=== PATIENT | female | born 1950 | race Caucasian/White ===

== ENCOUNTER 2018-07-21 20:34 | Emergency (ER) | payer MEDICARE ==
[2018-07-21 20:40] VITALS: BP 138/60
--- NOTE | 2018-07-21 20:43 | UC ---
Eye Complaint HPI - HPI Summary HPI Summary: 68 yo female presents with RIGHT upper eyelid swelling for the last 3 days. She tells me that about 3 days ago she noticed some redness and mild swelling to her upper eyelid. She thought she had a stye, so she applied warm compresses and it improved a little, but today noticed the redness spread across her whole upper eyelid. She does wear contacts daily, but did not today due to this. Denies vision changes, eye drainage, eye trauma. - History of Current Complaint Chief Complaint: UCEye Stated Complaint: EYE COMPLAINT Time Seen by Provider: 07/21/18 20:42 Hx Obtained From: Patient Onset/Duration: Gradual Onset Severity Currently: None Pain Intensity: 0 - Allergies/Home Medications Allergies/Adverse Reactions: Allergies Allergy/AdvReac Type Severity Reaction Status Date / Time No Known Allergies Allergy Verified 07/21/18 20:40 Home Medications: Home Medications Ibuprofen TAB* [Advil TAB*] 400 mg PO ONCE PRN 07/21/18 [History Confirmed 07/21] Med For Bones* MONTHLY 07/21/18 [History] PMH/Surg Hx/FS Hx/Imm Hx - Additional Past Medical History Additional PMH: None - Surgical History Surgical History: None - Family History Known Family History: Positive: None - Social History Lives: With Family Alcohol Use: Occasionally Substance Use Type: None Smoking Status (MU): Never Smoked Tobacco Review of Systems All Other Systems Reviewed And Are Negative: Yes Constitutional: Positive: Negative Skin: Positive: Negative Eyes: Positive: Other - Upper eyelid redness and swelling ENT: Positive: Negative Respiratory: Positive: Negative Neurovascular: Positive: Negative Neurological: Positive: Negative Psychological: Positive: Negative Physical Exam - Summary Physical Exam Summary: GENERAL: NAD. WDWN. No pain distress. SKIN: No rashes, sores, lesions, or open wounds. HEENT: Head: AT/NC Eyes: EOM intact. Conjunctiva clear without inflammation or discharge. RIGHT upper eyelid with mild edema and erythema. No localized stye appreciated. NECK: Supple. Nontender. No lymphadenopathy. CHEST: No accessory muscle use. Breathing comfortably and in no distress. CV: Pulses intact. Cap refill <2seconds NEURO: Alert. PSYCH: Age appropriate behavior. Triage Information Reviewed: Yes Vital Signs: Initial Vital Signs Temp 97.4 F 07/21/18 20:37 Pulse 81 07/21/18 20:37 Resp 16 07/21/18 20:37 BP 138/60 07/21/18 20:37 Pulse Ox 100 07/21/18 20:37 Vital Signs Reviewed: Yes Eye Complaint Course/Dx - Course Course Of Treatment: Suspect blepharitis. Will cover for infection with cipro eye drops given her contact usage. Advised to refrain from using contacts until resolved and to continue with warm compresses. - Differential Dx/Diagnosis Provider Diagnosis: Blepharitis Discharge - Sign-Out/Discharge Documenting (check all that apply): Patient Departure All imaging exams completed and their final reports reviewed: No Studies - Discharge Plan Condition: Stable Disposition: HOME Patient Education Materials: Blepharitis (ED) Referrals: Jovanny Amanda MD [Primary Care Provider] - Additional Instructions: If you develop a fever, shortness of breath, chest pain, new or worsening symptoms - please call your PCP or go to the ED. - Billing Disposition and Condition Condition: STABLE Disposition: Home
[2018-07-21] MEDS ORDERED: Ciprofloxacin 0.3% OPTH.SOL* 2.5 ML BTL RIGHT EYE ONE (20:53)
== END 2018-07-21 21:00 | disposition home or self-care (01) ==
LOC: UCEAST 20:34
DX: H01.001 Unspecified blepharitis right upper eyelid (principal)
CPT/HCPCS: 99212; A9270-GY; G0463